=== PATIENT | male | born 1970 | race Caucasian/White ===

== ENCOUNTER 2018-06-19 11:36 | Emergency (ER) | payer SELFPAY ==
--- OUTSIDE RECORDS SUMMARY | 2018-06-19 12:34 | XMS REPORT | Continuity of Care Document ---
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 Willy Del Rosario PayID: [id number] [place] [phone] Advance Directives Description No Information Available Problems Date Description Provider Status Onset: 11/25/2017 Urticaria due to cold and heat Bhavesh Sherwood MD Active Onset: 06/11/2018 Idiopathic urticaria DIEUDONNE Penn Active Family History Date Family Member(s) Problem(s) Comments General Diabetes General Hypertension General Heart Disease Social History Type Date Description Comments Sex Unknown Home Environment Has a window air conditioner Home Environment Unfinished Basement Home Environment The basement is moldy Home Environment Does not use a dehumidifier Home Environment The floors are carpeted Home Environment The floors are tile Home Environment The floors are wood Home Environment Uses forced air heating Tobacco Use Start: Unknown Home is not smoke-free Tobacco Use Start: Unknown Patient is a current smoker, smokes every day Smoking Status Reviewed: 06/11/18 Patient is a current smoker, smokes every day Allergies, Adverse Reactions, Alerts Description No Known Drug Allergies Medications Medication Date Status Form Strength Qnty SIG Indications Ordering Provider Epipen 2-Cruz 02/12 Active Solution 0.3mg/0.3 2unit apply to L50.2 Auto-Inje ML verónica Sherwood MD ct area as directed Doxepin HCL 12/11 Active Capsules 25mg 30cap 1 caps by s mouth at Radha Sherwood MD bedtime Vivitrol 11/25 Active Radha Sherwood MD Claritin 11/25 Active Tablets 10mg 30tab one L50.2 s tablet by Radha Sherwood MD mouth every morning Zyrtec Allergy 11/25 Active Tablets 10mg 30tab one L50.2 s tablet by Radha Sherwood MD mouth every evening Ibuprofen Active Tablets 800mg three Unknown /0000 times per day Aleve Active Tablets 220mg in Unknown /0000 morning Cyclobenzaprine Active Tablets 10mg Unknown HCL /0000 Tobramycin Active Solution 0.3% Unknown /0000 Naltrexone HCL Active Tablets 50mg Take One Unknown /0000 Tablet By Mouth AT Bedtime Trazodone HCL Active Tablets 50mg Unknown /0000 Prednisone Active Tablets 10mg Unknown /0000 Nicotine Active Patches 21mg/24HR Unknown Transdermal /0000 24HR System Step 1 Folic Acid Active Tablets 1mg Unknown /0000 Suboxone Active Film 8-2mg Unknown /0000 Sulfamethoxazole/ Active Tablets 800-160mg take 1 Unknown Trimethoprim DS /0000 tablet by mouth every 12 hours Permethrin Active Cream 5% Treat as Unknown /0000 Directed On Tube. Levofloxacin Active Tablets 750mg take 1 Unknown /0000 tablet by mouth once daily Immunizations Description No Information Available Vital Signs Date Vital Result Comment 06/11/2018 11:29am BP Systolic 130 mmHg BP Diastolic 80 mmHg Height 72 inches 6'0" Weight 195.50 lb BMI (Body Mass Index) 26.5 kg/m2 Heart Rate 99 /min Respiratory Rate 16 /min Body Temperature 97.4 F O2 % BldC Oximetry 93 % 02/12/2018 1:09pm BP Systolic 110 mmHg BP Diastolic 72 mmHg Height 72 inches 6'0" Weight 198.00 lb BMI (Body Mass Index) 26.9 kg/m2 Heart Rate 88 /min Respiratory Rate 16 /min O2 % BldC Oximetry 94 % 01/08/2018 1:39pm BP Systolic 136 mmHg BP Diastolic 80 mmHg Height 72 inches 6'0" Weight 198.00 lb BMI (Body Mass Index) 26.9 kg/m2 Heart Rate 70 /min Respiratory Rate 18 /min Body Temperature 98.0 F O2 % BldC Oximetry 99 % 12/11/2017 1:02pm BP Systolic 128 mmHg BP Diastolic 84 mmHg Height 72 inches 6'0" Weight 197.00 lb BMI (Body Mass Index) 26.7 kg/m2 Heart Rate 84 /min Respiratory Rate 16 /min Body Temperature 97.8 F O2 % BldC Oximetry 96 % 11/25/2017 10:47am Height 72 inches 6'0" 11/25/2017 10:39am BP Systolic 114 mmHg BP Diastolic 92 mmHg Weight 197.00 lb Heart Rate 86 /min Body Temperature 98.3 F O2 % BldC Oximetry 97 % Results Description No Information Available Procedures Description No Information Available Encounters Type Date Location Provider Dx Diagnosis Office Visit 06/11/2018 11:00a DIEUDONNE Saxena L50.1 Idiopathic urticaria L50.2 Urticaria due to cold and heat Office Visit 02/12/2018 1:00p Yaniv Paige NP L50.2 Urticaria due to cold and heat Office Visit 01/08/2018 1:30p Yaniv Paige NP L50.2 Urticaria due to cold and heat Office Visit 12/11/2017 1:00p Yaniv Paige NP L50.2 Urticaria due to cold and heat Office Visit 11/25/2017 10:30a Grahammarcial Sherwood L50.2 Urticaria due to MD cold and heat Plan of Treatment Future Appointment(s):10/13/2018 1:00 pm - DIEUDONNE Penn at [id number] - STUART Penn50.1 Idiopathic urticariaComments:Patient to continue Claritin, Zyrtec and doxepin as suppressive antihistamine therapy for his urticaria. I feel that this patient would benefit from Xolair therapy as minimal relief of symptoms after one year. We will restart the process to get Xolair approved for treatment of this patient.Patient has an EpiPen. Patient knows how and when to use his LkuVeuP95.2 Urticaria due to cold and heatFollow up:4 months
--- OUTSIDE RECORDS SUMMARY | 2018-06-19 12:34 | XMS REPORT | Continuity of Care Document ---
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 Willy Del Rosario PayID: [id number] [place] [id number] Advance Directives Description No Information Available Problems [...] 0.3mg/0.3 2unit apply to L50.2 Auto-Inje ML s affected ARASH Paige ct area as directed Doxepin HCL 12/11 Active Capsules 25mg 30cap 1 caps by Angelika s mouth at RAASH Paige bedtime Vivitrol 11/25 Active Christoph Radha Sherwood MD Claritin 11/25 Active Tablets 10mg 30tab one L50.2 Angelika s tablet by ARASH Paige mouth every morning Zyrtec Allergy 11/25 Active Tablets 10mg 30tab one L50.2 s tablet by ARASH Paige mouth every evening Ibuprofen Active Tablets 800mg [...] Unknown /0000 Nicotine Active Patches 21mg/24HR Unknown 24HR System Step 1 Folic Acid Active Tablets 1mg Unknown /0000 Suboxone Active Film 8-2mg Unknown /0000 Sulfamethoxazole/ Active Tablets 800-160mg take 1 Unknown Trimethoprim DS 0000 tablet by mouth every 12 hours Permethrin [...] Date Location Provider Dx Diagnosis Office Visit 02/12/2018 Yaniv Paige NP L50.2 Urticaria due to 1:00p cold and heat Office Visit 01/08/2018 Yaniv Paige NP L50.2 Urticaria due to 1:30p cold and heat Office Visit 12/11/2017 Yaniv Paige NP L50.2 Urticaria due to 1:00p cold and heat Office Visit 11/25/2017 Yaniv Sherwood, L50.2 Urticaria due to 10:30a cold and heat Plan of Treatment Future Appointment(s):08/20/2018 1:00 pm - DIEUDONNE Penn at [id number] - STUART Penn50.1 Idiopathic atlgwyezvS63.2 Urticaria due to cold and heat
--- OUTSIDE RECORDS SUMMARY | 2018-06-19 12:34 | XMS REPORT | Continuity of Care Document ---
:1970 External Reference #:[id number] Author Name Bhavesh Sherwood MD Address 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 Willy Del Rosario PayID: [id number] [place] [phone] Advance Directives Description No Information Available Problems Date Description Provider Status Onset: 11/25/2017 Urticaria due to cold and heat Bhavesh Sherwood MD Active Family History Date Family Member(s) Problem(s) [...] smoker, smokes every day Smoking Status Reviewed: 11/25/17 Patient is a current smoker, smokes every day Allergies, Adverse Reactions, Alerts Description No Known Drug Allergies Medications Medication Date Status Form Strength Qnty SIG Indications Ordering Provider Epipen 2-Cruz 02/12 Active Solution 0.3mg/0.3 2unit apply to L50.2 Angelika Auto-Inje ML s affected ARASH Paige ct area as directed Doxepin HCL 05/03 Active Capsules 25mg 30cap 1 caps by Angelika s mouth at ARASH Paige bedtime Vivitrol 11/25 Active Christoph Radha [...] /0000 morning Cyclobenzaprine Active Tablets 10mg Unknown /0000 Immunizations Description No Information Available Vital Signs Date Vital Result Comment 02/12/2018 1:09pm BP Systolic 110 mmHg BP [...] 1:00p cold and heat Office Visit 11/25/2017 [place] Bhavesh Sherwood, L50.2 Urticaria due to 10:30a cold and heat Plan of Treatment Future Appointment(s):06/11/2018 11:00 am - DIEUDONNE Penn at [id number] 1:00 pm - DIEUDONNE Penn at [email or web address]/[email or web address]/2018 - Angelika Paige NPL50.2 Urticaria due to cold and heatNew Medication:Epipen 2-Cruz 0.3 mg/0.3ML - apply to affected area as directedComments:Patient continues to have break though urticaria when exposed to cold. He is currently on Zyrtec, Claritin, and doxepin daily. He has the worse response February 10, 2018 involving most of his body. I feel that he needs Epi-pen as his reactions are becoming worse. also he need to avoid exposure to cold when possible. We are in the process of trying to obtain prior authorization for Xolair. In the meantimecontinue the current medical plan.Follow up in six months,
[2018-06-19 12:49] VITALS: BP 134/94
--- NOTE | 2018-06-19 12:56 | UC ---
Throat Pain/Nasal Segundo HPI - HPI Summary HPI Summary: Patient presents reporting sore throat and bilateral ear congestion. Patient states about 2 weeks ago he had head congestion and a cough. Patient states the cough got better but over the last 3 hours develop a sore throat. Patient states he noticed "white spots" in the back of his throat and on his tongue. Patient reports pain with swallowing. Patient's taken ibuprofen with improvement. Patient is able to eat and drink. No fever/chills/rash over states he gets sweaty at night 3 thinks he might get fevers. Patient denies sick contacts. Patient does smoke pack of cigarettes a day. Patient otherwise is not immunocompromised. Patient's medications reviewed this visit. - History of Current Complaint Chief Complaint: UCRespiratory Stated Complaint: COUGH,ST,B/L EAR COMPLAINT Time Seen by Provider: 06/19/18 12:49 Hx Obtained From: Patient Severity: Mild Pain Intensity: 3 Pain Scale Used: 0-10 Numeric - Allergies/Home Medications Allergies/Adverse Reactions: Allergies Allergy/AdvReac Type Severity Reaction Status Date / Time COLD Allergy Unknown Hives Uncoded 06/19/18 12:37 Home Medications: Home Medications Cetirizine HCl [Zyrtec] 10 mg PO DAILY 06/19/18 [History Confirmed 06/19/18] Doxepin (NF) 06/19/18 [History] Ibuprofen TAB* [Motrin TAB* 800 MG] 800 mg PO Q6H PRN 06/19/18 [History Confirmed 06/19/18] LoraTADine TAB(NF) [Claritin 10 MG TAB(NF)] 10 mg PO DAILY 06/19/18 [History Confirmed 06/19/18] PMH/Surg Hx/FS Hx/Imm Hx Previously Healthy: Yes - allergies - Surgical History Surgical History: Yes Surgery Procedure, Year, and Place: appendectomy. fx nose - Family History Known Family History: Positive: Non-Contributory - Social History Occupation: Unemployed Lives: With Family Alcohol Use: None Substance Use Type: None Smoking Status (MU): Heavy Every Day Tobacco Smoker Type: Cigarettes Amount Used/How Often: 1 PPD Have You Smoked in the Last Year: Yes Household Exposure Type: Cigarettes Review of Systems All Other Systems Reviewed And Are Negative: Yes Constitutional: Positive: Fatigue Eyes: Positive: Negative ENT: Positive: Sore Throat, Sinus Congestion Respiratory: Positive: Cough Is Patient Immunocompromised?: No Physical Exam - Summary Physical Exam Summary: Vital Signs Reviewed: Yes A+Ox3, no distress Eyes: Conjunctiva Clear, MUNDO. EOM intact and full ENT: Hearing grossly normal fluid left TM, no erythema, turbinates boggy, + PND pt with small, ulcerative lesions on soft palate, right lateral edge tongue and posterior pharynx. no exudate. mmoist, uvula midline, no exudate, no erythema Neck: Positive: Supple, no lynphadenopathy Respiratory: Positive: No respiratory distress, No accessory muscle use + CTA throughout no w/r Cardiovascular: RRR nl s1, s2 no m/r CBT <2 sec abd soft + BS nt/nd no guarding, no distension Musculoskeletal Exam: DAVIDSON x 4 without difficulty Strength Intact, ROM Intact Neurological: Positive: Alert, + sensation throughout Psychological: Positive: Normal Response To Family Skin: Positive: no rash, no ecchymosis, no lesions to hands, feet Triage Information Reviewed: Yes Vital Signs: Initial Vital Signs Temp 99 F 06/19/18 12:40 Pulse 90 06/19/18 12:40 Resp 26 06/19/18 12:40 BP 134/94 06/19/18 12:40 Pulse Ox 97 06/19/18 12:40 Throat Pain/Nasal Course/Dx - Course Course Of Treatment: Patient presents to urgent care reporting cough and congestion 2 weeks ago. Patient now with progressive sore throat 48 hours. Patient also reports some fullness in his ears.. Patient has taken Motrin with improvement. On exam vital signs are stable. Patient has 5 appearing ulcerative lesions on his oropharynx and tongue. Patient is nontoxic- appearing. Strep is negative. Patient given viscous lidocaine with good effect. Patient also noted to have fluid in his years but no overt signs of infection. We'll start Flonase, viscous lidocaine Motrin Tylenol. Discussed with patient secretion precautions humidified air. Return precautions. Patient comfortable in agreement with plan. - Differential Dx/Diagnosis Provider Diagnoses: upper resp infection, otits serous Discharge - Sign-Out/Discharge Documenting (check all that apply): Patient Departure All imaging exams completed and their final reports reviewed: No Studies - Discharge Plan Condition: Stable Disposition: HOME Prescriptions: Fluticasone NASAL SPRAY 50MCG* [Flonase NASAL SPRAY 50MCG*] 2 spray BOTH NARES DAILY #1 btl Lidocaine 2% VISCOUS* [Xylocaine 2% Viscous*] 15 ml SWISH SPIT Q4H PRN #1 btl PRN Reason: Sore Throat Patient Education Materials: Pharyngitis (ED), Upper Respiratory Infection (ED) Referrals: Jayashree Melara MD [Primary Care Provider] - Additional Instructions: - stay well hydrated. Drink plenty of non-alcoholic, non-caffinated beverages - okay to alternate ibuprofen (Advil, motrin) and tylenol every 3 hours for fever and discomfort - Okay to gargle and swallowing the numbing medication every 4 hours as prescribed - use nasal spray as instructed - Okay to take over the counter decongestant such as sudafed - These infections are spread by oral secretions. Do not share eating or drinking utensils. Frequent hand washing is important. Clean items that may get your secretions on them such as cell phones, ipads, computer mouse, television remotes. Once you start to feel better, change your pillowcase and your toothbrush contact your doctor or return with questions or concerns - Billing Disposition and Condition Condition: STABLE Disposition: Home
[2018-06-19] MEDS ORDERED: Lidocaine 2% VISCOUS* 15 ML UDC PO ONE (13:03)
== END 2018-06-19 13:28 | disposition home or self-care (01) ==
LOC: UCCORT 11:36
DX: J06.9 Acute upper respiratory infection, unspecified (principal); H65.93 Unspecified nonsuppurative otitis media, bilateral; F17.210 Nicotine dependence, cigarettes, uncomplicated; Z91.048 Other nonmedicinal substance allergy status
CPT/HCPCS: 87651; 99202; G0463